=== PATIENT | male | born 1960 | race Caucasian/White ===

== ENCOUNTER 2020-01-13 14:22 | Emergency (ER) | payer OTHER ==
[~2020-01-13] VITALS: Ht 180.3 cm; Wt 90.7 kg
[2020-01-13 14:45] VITALS: BP_SYST 161
--- NOTE | 2020-01-13 14:45 | NUR ---
Patient to ER bed 4 to gown for evaluation. Side rails up. Report given to Aparna.
--- NOTE | 2020-01-13 14:50 | NUR ---
PT AAO AND AMBULATORY C/O ACUTE BACK PAIN THAT RADIATES DOWN RIGHT LEG. 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 PAIN CURRENTLY 6/10 ON PAIN SCALE.
--- NOTE | 2020-01-13 14:55 | NUR ---
ER Dr. León at bedside examining patient.
[2020-01-13] MEDS ORDERED: KETOROLAC TROMETHAMINE 60 MG/2 ML VIAL IM ONE (15:00)
--- NOTE | 2020-01-13 15:05 | NUR ---
Patient ambulatory to radiology, accompanied by Minerva HILLMAN
[2020-01-13 15:52] VITALS: BP_SYST 159
== END 2020-01-13 15:52 | disposition home or self-care (01) ==
LOC: SED 14:22
DX: S33.5XXA Sprain of ligaments of lumbar spine, initial encounter (principal); X50.9XXA Other and unspecified overexertion or strenuous movements or postures, initial encounter; Y93.89 Activity, other specified; Y92.89 Other specified places as the place of occurrence of the external cause; Y99.8 Other external cause status
CPT/HCPCS: 72131; 76376; 96372; 99284; J1885